=== PATIENT | female | born 1960 | race African-American/Black ===

== ENCOUNTER 2016-12-28 20:49 | Emergency (ER) | payer BC ==
[2016-12-28 21:23] VITALS: TEMP 98; BMI 38.4
--- NOTE | 2016-12-28 21:55 | PDOC ---
History of Present Illness - General History Source: Patient Exam Limitations: No Limitations - History of Present Illness Initial Comments: 12/28/16 22:36 The patient is a 56 year old female with history of hypertension, DM, asthma, who presents to the ED complaining of 1 day of progressively worsening dyspnea and nonproductive cough. Dyspnea is not associated with lying flat. She states she took her albuterol at home but her symptoms persist. No fever or chills. No true chest pain or lightheadedness. No nausea, vomiting, or diarrhea. Patient denies OCP use or cigarette smoking. <Fanny Ordoñez - Last Filed: 12/29/16 00:28> <Yaima Mackenzie - Last Filed: 12/29/16 04:00> - General Chief Complaint: Respiratory Stated Complaint: COLD/CHEST PAIN Time Seen by Provider: 12/28/16 21:55 Past History <Fanny Ordoñez - Last Filed: 12/29/16 00:28> - Past Medical History Anemia: No Asthma: Yes Cancer: Yes (hysterectomy in [place]) Cardiac Disorders: Yes CVA: No COPD: Yes CHF: No Dementia: No Diabetes: No GI Disorders: Yes (GERD) Disorders: No HTN: Yes Hypercholesterolemia: Yes Liver Disease: No Seizures: No Thyroid Disease: No - Surgical History Abdominal Surgery: No Appendectomy: No Cardiac Surgery: No Cholecystectomy: No Gastric Stapling: No GI Surgery: No Lung Surgery: No Neurologic Surgery: No Orthopedic Surgery: No - Suicide/Smoking/Psychosocial Hx Smoking Status: No Smoking History: Never smoked Have you smoked in the past 12 months: No Number of Cigarettes Smoked Daily: 0 Information on smoking cessation initiated: No Hx Alcohol Use: No Drug/Substance Use Hx: No Substance Use Type: None Hx Substance Use Treatment: No <Yaima Mackenzie - Last Filed: 12/29/16 04:00> - Past Medical History Allergies/Adverse Reactions: Allergies Allergy/AdvReac Type Severity Reaction Status Date / Time Iodinated Contrast- Oral and Allergy Verified 12/28/16 21:14 IV Dye [IV Dye, Iodine Containing Contrast ] Home Medications: Ambulatory Orders Aspirin [ASA -] 81 mg PO DAILY 04/26/15 Metformin HCl 1,000 mg PO DAILY 04/26/15 Atorvastatin Ca [Lipitor -] 40 mg PO HS #30 tablet 04/27/15 Metoprolol Tartrate 12.5 mg PO DAILY 12/28/16 Albuterol Sulfate Inhaler - [Ventolin Hfa Inhaler -] 1 - 2 inh PO Q4H #1 inhaler 12/29/16 Azithromycin [Zithromax Tri-Kian (3 DAYS) -] 500 mg PO DAILY #3 tablet 12/29/16 Review of Systems - Review of Systems Able to Perform ROS?: Yes Comments:: 12/28/16 22:37 GENERAL/CONSTITUTIONAL: No fever or chills. No weakness. HEAD, EYES, EARS, NOSE AND THROAT: No change in vision. No ear pain or discharge. No sore throat. CARDIOVASCULAR: No chest pain or lightheadedness. RESPIRATORY: Present: dyspnea, nonproductive cough. No: hemoptysis. GASTROINTESTINAL: No nausea, vomiting, diarrhea or constipation. GENITOURINARY: No dysuria, frequency, or change in urination. MUSCULOSKELETAL: No joint or muscle swelling or pain. No neck or back pain. SKIN: No rash NEUROLOGIC: No headache, vertigo, loss of consciousness, or change in strength/ sensation. ENDOCRINE: No increased thirst. No abnormal weight change. HEMATOLOGIC/LYMPHATIC: No anemia, easy bleeding, or history of blood clots. ALLERGIC/IMMUNOLOGIC: No hives or skin allergy. <Fanny Ordoñez - Last Filed: 12/29/16 00:28> *Physical Exam - Vital Signs Last Vital Signs Temp Pulse Resp BP Pulse Ox 98.0 F 101 H 18 158/82 98 12/28/16 21:15 12/28/16 21:15 12/28/16 21:15 12/28/16 21:15 12/28/16 21:15 - Physical Exam Comments: 12/28/16 22:39 GENERAL: Awake, alert, and fully oriented, in no acute distress HEAD: No signs of trauma EYES: PERRLA, EOMI, sclera anicteric, conjunctiva clear ENT: Auricles normal inspection, hearing grossly normal, nares patent, oropharynx clear without exudates. Moist mucosa NECK: Normal ROM, supple, no lymphadenopathy, JVD, or masses LUNGS: +Coarse breath sounds bilaterally. No crackles. HEART: Regular rate and rhythm, normal S1 and S2, no murmurs, rubs or gallops ABDOMEN: Soft, nontender, normoactive bowel sounds. No guarding, no rebound. No masses EXTREMITIES: Normal range of motion, no edema. No clubbing or cyanosis. No cords, erythema, or tenderness NEUROLOGICAL: Cranial nerves II through XII grossly intact. Normal speech, normal gait SKIN: Warm, Dry, normal turgor, no rashes or lesions noted. <Fanny Ordoñez - Last Filed: 12/29/16 00:28> - Vital Signs Last Vital Signs Temp Pulse Resp BP Pulse Ox 98.0 F 101 H 18 158/82 98 12/28/16 21:15 12/28/16 21:15 12/28/16 21:15 12/28/16 21:15 12/28/16 21:15 <Yaima Mackenzie - Last Filed: 12/29/16 04:00> Heart Score/ECG Review #1 12/29/16 00:29 EKG obtained 23:48. Normal sinus rhythm at 73 bpm. Spetal infarct, age undetermined. Abnormal ECG. <Fanny Ordoñez - Last Filed: 12/29/16 00:28> Medical Decision Making - Medical Decision Making 12/29/16 03:50 Pt comes with asthma exacerbation and chest pain. She states that she uses ventolin; currently using and ventolin pump. Pt has no fevers, but has a dry cough and SOB. She is not a smoker. She is diabetic. Pt will be treated with prednisone and abx (zithromax) for atypical pneumonia. CXR done - relatively clear lung taylor, however I choose to treat with abx as she has DM and SOB and likely has atypical pneumo, given her dry cough and symptoms. <Yaima Mackenzie - Last Filed: 12/29/16 04:00> *DC/Admit/Observation/Transfer - Attestations Scribe Attestion: 12/28/16 22:40 Documentation prepared by Fanny Ordoñez, acting as medical service representative for Yaima Mackenzie MD. <Fanny Ordoñez - Last Filed: 12/29/16 00:28> - Discharge Dispostion Admit: No <Yaima Mackenzie - Last Filed: 12/29/16 04:00> Diagnosis at time of Disposition: Asthma, Atypical pneumonia - Discharge Dispostion Disposition: HOME Condition at time of disposition: Stable - Prescriptions Prescriptions: Albuterol Sulfate Inhaler - [Ventolin Hfa Inhaler -] 1 - 2 inh PO Q4H #1 inhaler Azithromycin [Zithromax Tri-Kian (3 DAYS) -] 500 mg PO DAILY #3 tablet - Referrals Referrals: Miguel Vidal PA [Primary Care Provider] - - Patient Instructions Printed Discharge Instructions: DI for Pneumonia -- Adult, DI for Asthma -- Adult
[2016-12-28] MEDS ORDERED: AZITHROMYCIN 250 MG TABLET ONE (22:09)
[2016-12-28] MEDS ORDERED: ALBUTEROL SO4 2.5/IPRATROPIUM 0.5 INH SOL 3 ML VIAL.NEB. NEB ONE ×2 (22:10→22:23)
[2016-12-28] MEDS ORDERED: AZITHROMYCIN 250 MG TABLET PO ONE (22:23)
[2016-12-28] MEDS ORDERED: predniSONE 20 MG TABLET (UD) PO ONE (22:23)
[2016-12-28] MEDS ORDERED: predniSONE 20 MG TABLET (UD) ONE (22:42)
[2016-12-29 03:54] VITALS: BP 157/79; PULSE 90
--- NOTE | 2016-12-30 07:11 | EKG ---
Test Reason : Blood Pressure : / mmHG Vent. Rate : 102 BPM Atrial Rate : 102 BPM P-R Int : 178 ms QRS Dur : 082 ms QT Int : 322 ms P-R-T Axes : 049 005 024 degrees QTc Int : 419 ms SINUS TACHYCARDIA NONSPECIFIC T WAVE ABNORMALITY ABNORMAL ECG WHEN COMPARED WITH ECG OF 26-APR-2015 11:41, NO SIGNIFICANT CHANGE WAS FOUND Confirmed by MAYELA BEATTY MD ([id number]) on 12/30/2016 7:11:16 AM Referred By: Confirmed By:MAYELA BEATTY MD
== END 2016-12-29 03:53 | disposition home or self-care (01) ==
LOC: JER 20:49
PROC: 3E0F7GC Introduction of Other Therapeutic Substance into Respiratory Tract, Via Natural or Artificial Opening (ICD-10-PCS; principal; 2016-12-28)
DX: J45.909 Unspecified asthma, uncomplicated (principal); J18.9 Pneumonia, unspecified organism; J44.9 Chronic obstructive pulmonary disease, unspecified; I10 Essential (primary) hypertension; E11.9 Type 2 diabetes mellitus without complications; K21.9 Gastro-esophageal reflux disease without esophagitis; Z79.84 Long term (current) use of oral hypoglycemic drugs
CPT/HCPCS: 71020-TC; 93005; 93010; 99282-25

== ENCOUNTER 2017-08-01 10:03 | Emergency (ER) | payer BC ==
[2017-08-01 10:09] VITALS: BMI 36.6
[2017-08-01] MEDS ORDERED: ONDANSETRON 4 MG/2 ML VIAL IVPUSH ONE (10:39)
[2017-08-01] MEDS ORDERED: FAMOTIDINE IV 20 MG/12 ML VIAL IVPUSH ONE (10:39)
[2017-08-01] MEDS ORDERED: SODIUM CHLORIDE 0.9% 500 ML INFUS.BAG IV ONE (10:39)
[2017-08-01] MEDS ORDERED: FAMOTIDINE 20 MG/50 ML IVPB 20 MG/50 ML MG IVPB ONE (10:53)
[2017-08-01] MEDS ORDERED: ONDANSETRON 4 MG/2 ML VIAL ONE (10:53)
[2017-08-01 11:08] LABS: BASO % 0.7 % (0-2.0); EOS % 2.3 % (0-4.5); HEMATOCRIT 37.8 % (32.4-45.2); LYMPH % 23.9 % (8-40); MCH 24.8 pg (25.7-33.7); MCHC 31.7 g/dl (32.0-36.0); MEAN CELL VOLUME 78.3 fl (80-96); MEAN PLT VOLUME 8.3 fl (7.5-11.1); MONO % 9.1 % (3.8-10.2); PLATELET COUNT 281 K/MM3 (134-434); RBC 4.83 M/mm3 (3.60-5.2); WHITE BLOOD COUNT 4.8 K/mm3 (4.0-10.0)
[2017-08-01] MEDS ORDERED: MECLIZINE HCL 25 MG TABLET (FP) PO ONE (11:30)
--- NOTE | 2017-08-01 11:30 | PDOC ---
History of Present Illness - General History Source: Patient Exam Limitations: No Limitations - History of Present Illness Initial Comments: 08/01/17 11:30 The patient is a 57 year old female, with a significant past medical history of diabetes, who presents to the emergency department complaining of dizziness, blurry vision, nausea and vomiting. She denies any sick contacts or recent travel. She describes her vomit as nonbloody and nonbilious. She describes her dizziness as if the room was spinning. She notes that she does have a history of vertigo in the past, roughly 5 years ago. At present time, the patient notes that the dizziness has resolved but the nausea is still apparent. The patient denies chest pain, shortness of breath, headache, fever, chills, diarrhea and constipation. Denies dysuria, frequency, urgency and hematuria. Allergies: Oral and IV dye Past surgical history: Social History: No alcohol, tobacco or drug use reported <Ben Brown - Last Filed: 08/01/17 11:30> - General History Source: Patient Exam Limitations: No Limitations - History of Present Illness Initial Comments: 08/01/17 11:27 <Raquel Roque - Last Filed: 08/01/17 15:56> - General Chief Complaint: Nausea/Vomiting Stated Complaint: VOMITING Time Seen by Provider: 08/01/17 11:27 Past History <Ben Brown - Last Filed: 08/01/17 11:30> - Past Medical History Anemia: No Asthma: Yes Cancer: Yes (hysterectomy in [place]) Cardiac Disorders: Yes CVA: No COPD: Yes CHF: No Dementia: No Diabetes: No GI Disorders: Yes (GERD) Disorders: No HTN: Yes Hypercholesterolemia: Yes Liver Disease: No Seizures: No Thyroid Disease: No - Surgical History Abdominal Surgery: No Appendectomy: No Cardiac Surgery: No Cholecystectomy: No Gastric Stapling: No GI Surgery: No Lung Surgery: No Neurologic Surgery: No Orthopedic Surgery: No - Suicide/Smoking/Psychosocial Hx Smoking Status: No Smoking History: Never smoked Have you smoked in the past 12 months: No Number of Cigarettes Smoked Daily: 0 Hx Alcohol Use: No Drug/Substance Use Hx: No Substance Use Type: None Hx Substance Use Treatment: No <Raquel Roque - Last Filed: 08/01/17 15:56> - Past Medical History Allergies/Adverse Reactions: Allergies Allergy/AdvReac Type Severity Reaction Status Date / Time Iodinated Contrast- Oral and Allergy Verified 08/01/17 10:09 IV Dye [IV Dye, Iodine Containing Contrast ] Home Medications: Ambulatory Orders Aspirin [ASA -] 81 mg PO DAILY 04/26/15 Metformin HCl 1,000 mg PO DAILY 04/26/15 Atorvastatin Ca [Lipitor -] 40 mg PO HS #30 tablet 04/27/15 Metoprolol Tartrate 12.5 mg PO DAILY 12/28/16 Albuterol Sulfate Inhaler - [Ventolin Hfa Inhaler -] 1 - 2 inh PO Q4H #1 inhaler 12/29/16 Azithromycin [Zithromax Tri-Kian (3 DAYS) -] 500 mg PO DAILY #3 tablet 12/29/16 Meclizine HCl 25 mg PO QID PRN #30 tablet 08/01/17 Metoclopramide HCl [Reglan -] 10 mg PO QID PRN #28 tablet MDD 3 08/01/17 Review of Systems - Review of Systems Able to Perform ROS?: Yes Comments:: 08/01/17 11:30 GENERAL/CONSTITUTIONAL: No fever or chills. No weakness. HEAD, EYES, EARS, NOSE AND THROAT: No change in vision. No ear pain or discharge. No sore throat. CARDIOVASCULAR: No chest pain or shortness of breath. RESPIRATORY: No cough, wheezing, or hemoptysis. GASTROINTESTINAL: (+) Nausea and vomiting. No diarrhea or constipation. GENITOURINARY: No dysuria, frequency, or change in urination. MUSCULOSKELETAL: No joint or muscle swelling or pain. No neck or back pain. SKIN: No rash NEUROLOGIC: No headache, vertigo, loss of consciousness, or change in strength/ sensation. ENDOCRINE: No increased thirst. No abnormal weight change. HEMATOLOGIC/LYMPHATIC: No anemia, easy bleeding, or history of blood clots. ALLERGIC/IMMUNOLOGIC: No hives or skin allergy. <Ben Brown - Last Filed: 08/01/17 11:30> *Physical Exam - Vital Signs Last Vital Signs Temp Pulse Resp BP Pulse Ox 97.8 F 78 18 144/79 99 08/01/17 10:06 08/01/17 10:06 08/01/17 10:06 08/01/17 10:06 08/01/17 10:06 - Physical Exam Comments: 08/01/17 11:30 GENERAL: Awake, alert, and fully oriented, in no acute distress HEAD: No signs of trauma EYES: PERRLA, EOMI, sclera anicteric, conjunctiva clear ENT: Auricles normal inspection, nares patent. Moist mucosa NECK: Normal ROM, supple, no JVD, or masses LUNGS: Breath sounds equal, clear to auscultation bilaterally. No wheezes, and no crackles HEART: Regular rate and rhythm, normal S1 and S2, no murmurs, rubs or gallops ABDOMEN: Soft, nontender, normoactive bowel sounds. No guarding, no rebound. No masses EXTREMITIES: Normal range of motion, no edema. No clubbing or cyanosis. No cords, erythema, or tenderness SKIN: Warm, Dry, normal turgor, no rashes or lesions noted. NEUROLOGY: Finger to nose normal, normal alternative hand movements. 5/5 strength upper and lower extremities, gait is normal, positive romberg, positive yao hallpike left. <Ben Brown - Last Filed: 08/01/17 11:30> - Vital Signs Last Vital Signs Temp Pulse Resp BP Pulse Ox 97.8 F 78 18 144/79 99 08/01/17 10:06 08/01/17 10:06 08/01/17 10:06 08/01/17 10:06 08/01/17 10:06 <Raquel Roque - Last Filed: 08/01/17 15:56> ED Treatment Course - LABORATORY CBC & Chemistry Diagram: 08/01/17 11:00 08/01/17 11:00 - ADDITIONAL ORDERS Additional order review: 08/01/17 11:00 RBC 4.83 MCV 78.3 L MCHC 31.7 L RDW 17.0 H MPV 8.3 Neutrophils % 64.0 D Lymphocytes % 23.9 D Monocytes % 9.1 Eosinophils % 2.3 Basophils % 0.7 - Medications Given in the ED: ED Medications Discontinued Medications Generic Name Dose Route Start Last Admin Trade Name Freq PRN Reason Stop Dose Admin Famotidine 20 mg in 12 mls @ 144 mls/hr 08/01/17 10:39 08/01/17 11:06 Pepcid 20 Mg/12 Ml Push IVPUSH 08/01/17 10:43 144 mls/hr ONCE ONE Administration Ondansetron HCl 4 mg 08/01/17 10:39 08/01/17 11:06 Zofran Injection IVPUSH 08/01/17 10:40 4 mg ONCE ONE Administration Sodium Chloride 1,000 ml 08/01/17 10:39 08/01/17 11:06 Normal Saline - IV 08/01/17 10:40 1,000 ml ONCE ONE Administration <Ben Brown - Last Filed: 08/01/17 11:30> - LABORATORY CBC & Chemistry Diagram: 08/01/17 11:00 08/01/17 11:00 - ADDITIONAL ORDERS Additional order review: 08/01/17 11:00 RBC 4.83 MCV 78.3 L MCHC 31.7 L RDW 17.0 H MPV 8.3 Neutrophils % 64.0 D Lymphocytes % 23.9 D Monocytes % 9.1 Eosinophils % 2.3 Basophils % 0.7 - Medications Given in the ED: ED Medications Discontinued Medications Generic Name Dose Route Start Last Admin Trade Name Freq PRN Reason Stop Dose Admin Famotidine 20 mg in 12 mls @ 144 mls/hr 08/01/17 10:39 08/01/17 11:06 Pepcid 20 Mg/12 Ml Push IVPUSH 08/01/17 10:43 144 mls/hr ONCE ONE Administration Ondansetron HCl 4 mg 08/01/17 10:39 08/01/17 11:06 Zofran Injection IVPUSH 08/01/17 10:40 4 mg ONCE ONE Administration Sodium Chloride 1,000 ml 08/01/17 10:39 08/01/17 11:06 Normal Saline - IV 08/01/17 10:40 1,000 ml ONCE ONE Administration <Raquel Roque - Last Filed: 08/01/17 15:56> Medical Decision Making - Medical Decision Making 08/01/17 11:28 57 yo F with h/o diet controlled diabetes, htn here with c/o dizziness, n/v. started last night. threw up several times. last emesis early am. no f/c no gait disturbance. h/o vertigo in the past. on exam normal cerbellar exam finger to nose and gait, alt hand movement. but pos yao hallpike, pos romberg to left. ct head, labs meclizine, zofran ivf, and reassess. 08/01/17 11:50 08/01/17 15:55 pt feels improved. ambulatingwithout difficulty. TM bilateral with serous effusion. recommend over the counter decongestant and meclizine., reglan as needed for nausea. given referral for ENT and Dr. Oquendo, and <Raquel Roque - Last Filed: 08/01/17 15:56> *DC/Admit/Observation/Transfer - Attestations Scribe Attestion: 08/01/17 11:32 Documentation prepared by Ben Brown, acting as medical information specialist for Raquel Roque MD <Ben Brown - Last Filed: 08/01/17 11:30> - Discharge Dispostion Decision to Admit order: No <Raquel Roque - Last Filed: 08/01/17 15:56> Diagnosis at time of Disposition: Positional vertigo - Discharge Dispostion Disposition: HOME Condition at time of disposition: Improved - Prescriptions Prescriptions: Meclizine HCl 25 mg PO QID PRN #30 tablet PRN Reason: Vertigo Metoclopramide HCl [Reglan -] 10 mg PO QID PRN #28 tablet MDD 3 PRN Reason: Nausea - Referrals Referrals: Kiko Oquendo DO [Staff Physician] - Albert Spear MD [Staff Physician] - - Patient Instructions Printed Discharge Instructions: Benign Paroxysmal Positional Vertigo Additional Instructions: you will feel dizzy for 3 - 4 days. you should take meclizine 25 mg every 8 hrs as needed for dizziness or vertigo. you can take reglan 10 mg every 8 hrs as needed for nausea. follow up with nuerologist dr. oquendo, call to schedule. return for intractable vomiting, unsteady balance or any concerns. your head ct scan is normal and your blood work is normal. see attached.
[2017-08-01 12:05] LABS: ALBUMIN 3.6 g/dl (3.4-5.0); ALK PHOS 117 U/L (45-117); ANION GAP 5 (8-16); BILIRUBIN,TOTAL 0.4 mg/dL (0.2-1.0); BLOOD UREA NITROGEN 12 mg/dL (7-18); CALCIUM 8.9 mg/dL (8.5-10.1); CHLORIDE 105 mmol/L (98-107); CO2 30 mmol/L (21-32); CREATININE 0.8 mg/dL (0.55-1.02); GLUCOSE,RANDOM 182 mg/dL (74-106); LIPASE 94 U/L (73-393); POTASSIUM 4.2 mmol/L (3.5-5.1); SGOT/AST 14 U/L (15-37); SGPT/ALT 25 U/L (12-78); SODIUM 140 mmol/L (136-145); TOT PROT 7.1 g/dl (6.4-8.2)
[2017-08-01] MEDS ORDERED: MECLIZINE HCL 25 MG TABLET (FP) ONE (12:20)
[2017-08-01] MEDS ORDERED: METOCLOPRAMIDE HCL INJECTION 10 MG/2 ML VIAL ONE (14:41)
[2017-08-01] MEDS ORDERED: METOCLOPRAMIDE HCL INJECTION 10 MG/2 ML VIAL IVPUSH ONE (14:48)
[2017-08-01] MEDS ORDERED: diazePAM 5 MG TABLET PO ONE (14:53)
[2017-08-01] MEDS ORDERED: diazePAM 5 MG TABLET ONE (14:59)
[2017-08-01 16:30] VITALS: BP 135/78; PULSE 72; TEMP 98.2
== END 2017-08-01 17:27 | disposition home or self-care (01) ==
LOC: JER 10:03
PROC: 3E033GC Introduction of Other Therapeutic Substance into Peripheral Vein, Percutaneous Approach (ICD-10-PCS; principal; 2017-08-01)
PROC: 3E033GC Introduction of Other Therapeutic Substance into Peripheral Vein, Percutaneous Approach (ICD-10-PCS; 2017-08-01)
PROC: 3E033GC Introduction of Other Therapeutic Substance into Peripheral Vein, Percutaneous Approach (ICD-10-PCS; 2017-08-01)
DX: H81.10 Benign paroxysmal vertigo, unspecified ear (principal); I10 Essential (primary) hypertension; E11.9 Type 2 diabetes mellitus without complications; E78.00 Pure hypercholesterolemia, unspecified; K21.9 Gastro-esophageal reflux disease without esophagitis
CPT/HCPCS: 36415; 70450-TC; 80053; 83690; 85025; 99282-25

== ENCOUNTER 2017-08-29 09:41 | Emergency (ER) | payer OTHER, BC ==
[2017-08-29 09:49] VITALS: TEMP 98.2; BMI 37.1
--- NOTE | 2017-08-29 10:39 | PDOC ---
History of Present Illness - General Chief Complaint: Nausea Stated Complaint: CHEMICAL EXPOSURE Time Seen by Provider: 08/29/17 09:52 History Source: Patient Exam Limitations: No Limitations - History of Present Illness Initial Comments: This is a 57 YOF with h/o NIDDM (on metformin and Glipizide), vertigo, and stated heart condition (notes she was admitted to [facility] for a week for evaluation of chest pain but denies being told she had a heart attack) who p/w nausea, NBNB vomiting x3 episodes, room-spinning dizziness, left-sided headache , and neck muscle soreness, left eye pain/burning, left ear ringing , and intermittent right axilla pains since yesterday. She believes she was exposed to a white liquid chemical at work (splashed in face) and states that there are other people at her workplace who were exposed as well. She reportedly spoke with her boss and notes that they did not tell her what kind of chemical this may have been, and told her to flush her eyes with water. The patient went to Urgent Care yesterday and was given Tobramycin and Prednisolone eyedrops, and instructed to go to an ophthalmology office. She subsequently went to be evaluated by ophthalmology yesterday and was told her eyes looked normal, but she was started on Ofloxacin/Dexamethasone drops as well as the other drops. She denies any fever, chills, diarrhea, constipation, SOB, abdominal pain, new swelling, or other symptoms lately. Past History - Past Medical History Allergies/Adverse Reactions: Allergies Allergy/AdvReac Type Severity Reaction Status Date / Time Iodinated Contrast- Oral and Allergy Verified 08/29/17 09:49 IV Dye [IV Dye, Iodine Containing Contrast ] Home Medications: Ambulatory Orders metFORMIN HCL [Metformin HCl] 1,000 mg PO BID 04/26/15 Metoprolol Tartrate 12.5 mg PO BID 12/28/16 Anemia: No Asthma: Yes Cancer: Yes (hysterectomy in [place]) Cardiac Disorders: Yes CVA: No COPD: Yes CHF: No Dementia: No Diabetes: No GI Disorders: Yes (GERD) Disorders: No HTN: Yes Hypercholesterolemia: Yes Liver Disease: No Seizures: No Thyroid Disease: No - Surgical History Abdominal Surgery: No Appendectomy: No Cardiac Surgery: No Cholecystectomy: No Gastric Stapling: No GI Surgery: No Lung Surgery: No Neurologic Surgery: No Orthopedic Surgery: No - Suicide/Smoking/Psychosocial Hx Smoking Status: No Smoking History: Never smoked Have you smoked in the past 12 months: No Number of Cigarettes Smoked Daily: 0 Hx Alcohol Use: No Drug/Substance Use Hx: No Substance Use Type: None Hx Substance Use Treatment: No Review of Systems - Review of Systems Able to Perform ROS?: Yes Constitutional: No: Chills, Fever, Unexplained wgt Loss HEENTM: Yes: Eye Pain, Tearing, Tinnitus. No: Nose Congestion, Throat Pain Respiratory: No: Cough, Shortness of Breath Cardiac (ROS): Yes: Chest Pain. No: Palpitations ABD/GI: Yes: Nausea, Vomiting. No: Constipated, Diarrhea : No: Burning, Dysuria Musculoskeletal: No: Back Pain, Neck Pain Integumentary: No: Bruising, Rash Neurological: Yes: Headache, Dizziness. No: Numbness, Tingling, Weakness Endocrine: No: Unexplained Weight Gain, Unexplained Weight Loss *Physical Exam - Vital Signs Last Vital Signs Temp Pulse Resp BP Pulse Ox 98.2 F 89 18 134/70 99 08/29/17 09:46 08/29/17 09:46 08/29/17 09:46 08/29/17 09:46 08/29/17 09:46 - Physical Exam General Appearance: Yes: Nourished, Appropriately Dressed, Other (nontoxic and well appearing but anxious appearing adult female who is a/ox4 ). No: Apparent Distress HEENT: positive: EOMI, Normal Voice, Hearing Grossly Normal. negative: Scleral Icterus (R), Scleral Icterus (L), Nasal Congestion Neck: positive: Trachea midline, Supple. negative: Tender, Rigid Respiratory/Chest: positive: Lungs Clear, Normal Breath Sounds. negative: Respiratory Distress, Crackles, Rhonchi, Stridor, Wheezing Cardiovascular: positive: Regular Rhythm, Regular Rate. negative: Murmur Gastrointestinal/Abdominal: positive: Normal Bowel Sounds, Soft. negative: Tender, Organomegaly, Pulsatile Mass, Guarding Musculoskeletal: positive: Normal Inspection. negative: Decreased Range of Motion, Vertebral Tenderness Extremity: positive: Normal Capillary Refill, Normal Inspection, Normal Range of Motion. negative: Tender, Cyanosis Integumentary: positive: Normal Color, Dry, Warm. 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 negative: EOM Palsy, Facial Droop, Numbness, Sensory Deficit, Confused, Disoriented Heart Score/ECG Review - History History: Slightly suspicious - Electrocardiogram EKG: Normal - Age Age: 45-65 - Risk Factors Risk Factors Heart Score: Yes Hx Diabetes Based on the list above the patient has:: 1-2 risk factors - Troponin Troponin: </= normal limit - Score Heart Score - Total: 2 #1 Sinus rhythm, rate 80, normal axis and intervals, T wave flattening in III and aVL, otherwise normal EKG. ED Treatment Course - LABORATORY CBC & Chemistry Diagram: 08/29/17 10:45 08/29/17 10:45 Medical Decision Making - Medical Decision Making Adult Pt p/w room-spinning dizziness, nausea, vomiting, tinnitus, headache. Initial Vital Signs Temp Pulse Resp BP Pulse Ox 98.2 F 89 18 134/70 99 08/29/17 09:46 08/29/17 09:46 08/29/17 09:46 08/29/17 09:46 08/29/17 09:46 Exam: Anxious, normal eye exam, TMs clear, normal neuro exam, gait normal, horizontal nystagmus on extreme gaze which extinguishes in 5 seconds DDX IBNLT: peripheral cause (BPPV, otitis media, vestibular neuritis, herpes zoster oticus AKA [place] Sam syndrome, Meniere disease, labyrinthine concussion , perilymphatic fistula, semicircular canal dehiscence syndrome, Stephanie syndrome , recurrent vestibulopathy, acoustic neuroma, aminoglycoside toxicity), central cause (brainstem ischemia or cerebellar infarction or hemorrhage e.g. thromboembolism/thrombosis/dissection, vestibular migraine, multiple sclerosis, Chiari malformation, episodic ataxia type 2), or non-vertiginous cause of dizziness (i.e. lightheadedness c/f pre-syncope). W/U ordered: CBCD CMP Mg Phos Cardiac panel EKG CXR TX ordered: IV, IVF, meclizine Unlikely central cause of vertigo as Pt has no focal neuro deficits, nystagmus is horizontal and extinguishing. EKG: Sinus rhythm, rate 80, normal axis and intervals, T wave flattening in III and aVL, otherwise normal EKG. CXR: Laboratory Tests 08/29/17 08/29/17 08/29/17 10:45 10:45 10:45 WBC 5.2 RBC 4.89 Hgb 12.3 Hct 38.6 MCV 78.9 L MCH 25.2 L MCHC 32.0 RDW 17.4 H Plt Count 317 MPV 8.6 Absolute Neuts (auto) 3.4 Neutrophils % 64.6 Lymphocytes % 25.0 Monocytes % 5.2 Eosinophils % 4.6 H D Basophils % 0.6 Nucleated RBC % 0 Sodium 139 Potassium 4.7 Chloride 104 Carbon Dioxide 28 Anion Gap 7 L BUN 11 Creatinine 0.9 Creat Clearance w eGFR > 60 Random Glucose 212 H Calcium 9.2 Phosphorus 3.5 Magnesium 1.6 L Total Bilirubin 0.2 D AST 27 ALT 34 Alkaline Phosphatase 133 H Creatine Kinase Troponin I Total Protein 7.4 Albumin 3.7 Urine Color Yellow Urine Appearance Clear Urine pH 5.0 Ur Specific Bryant 1.020 Urine Protein Negative Urine Glucose (UA) Negative Urine Ketones Negative Urine Blood Negative Urine Nitrite Negative Urine Bilirubin Negative Urine Urobilinogen Negative Ur Leukocyte Esterase Negative 08/29/17 10:45 WBC RBC Hgb Hct MCV MCH MCHC RDW Plt Count MPV Absolute Neuts (auto) Neutrophils % Lymphocytes % Monocytes % Eosinophils % Basophils % Nucleated RBC % Sodium Potassium Chloride Carbon Dioxide Anion Gap BUN Creatinine Creat Clearance w eGFR Random Glucose Calcium Phosphorus Magnesium Total Bilirubin AST ALT Alkaline Phosphatase Creatine Kinase Cancelled Troponin I Cancelled Total Protein Albumin Urine Color Urine Appearance Urine pH Ur Specific Bryant Urine Protein Urine Glucose (UA) Urine Ketones Urine Blood Urine Nitrite Urine Bilirubin Urine Urobilinogen Ur Leukocyte Esterase Repeat VS: Reassessment: ADMIT The Pt is unsafe for discharge at this time. They require further hospital observation, workup, and treatment. Microblog sent to [facility] for admission. Spoke with [facility], in agreement Pt to be admitted to Decision to Admit order placed to [facility] covering attending DISCHARGE The Pt has gotten significant relief of symptoms with ED medications. Workup is not concerning for emergency-level pathology at this time. The Pt is appropriate for discharge with close outpatient follow up. They are comfortable with this plan and will follow up with their PCP in 1-3 days. They are given referral information for Neurology in case they need it. Specific return precautions are discussed and they will come back to the ER if necessary. *DC/Admit/Observation/Transfer Diagnosis at time of Disposition: Vertigo Vomiting Qualifiers: Vomiting type: unspecified Vomiting Intractability: non-intractable Nausea presence: with nausea Qualified Code(s): R11.2 - Nausea with vomiting, unspecified Headache Qualifiers: Headache type: unspecified Headache chronicity pattern: unspecified pattern Intractability: not intractable Qualified Code(s): R51 - Headache - Discharge Dispostion Disposition: HOME Condition at time of disposition: Stable Decision to Admit order: No - Referrals - Patient Instructions Printed Discharge Instructions: DI for Vertigo Additional Instructions: You were seen in the ER for dizziness, headache, nausea, and vomiting that we believe is related to your vertigo. We did laboratory work, imaging studies, and an EKG and we did not find any concerning abnormalities. After our assessment, we do not believe there is a medical emergency at this time, and we believe it is safe to go home. Please take meclizine 25 to 50 mg for your vertigo as directed on the bottle. This is an [id number] medication. Please follow up with your regular PCP doctor in 1-3 days. Call their clinic as soon as possible, tell them you were seen in the ER, and tell them you need an appointment. If there are any new or worsening symptoms, especially headache, weakness of one part of your body, numbness, tingling, change in your balance, vision troubles, or other troubles, please come back to the ER at any time (24 hours a day). If the symptoms appear severe or life-threatening, please call 911 to have an ambulance take you to the ER. - Post Discharge Activity
[2017-08-29] MEDS ORDERED: MECLIZINE HCL 25 MG TABLET (FP) PO ONE (10:46)
[2017-08-29] MEDS ORDERED: SODIUM CHLORIDE 0.9% 500 ML INFUS.BAG IV ONE (10:46)
[2017-08-29 11:12] LABS: BASO % 0.6 % (0-2.0); EOS % 4.6 % (0-4.5); HEMATOCRIT 38.6 % (32.4-45.2); HEMOGLOBIN 12.3 GM/dL (10.7-15.3); MCH 25.2 pg (25.7-33.7); MEAN CELL VOLUME 78.9 fl (80-96); MEAN PLT VOLUME 8.6 fl (7.5-11.1); MONO % 5.2 % (3.8-10.2); NEUT % 64.6 % (42.8-82.8); PLATELET COUNT 317 K/MM3 (134-434); RBC 4.89 M/mm3 (3.60-5.2); RDW 17.4 % (11.6-15.6); URINE APPEARANCE CLEAR; URINE BILIRUBIN NEGATIVE (<2.0 mg/dL); URINE COLOR YELLOW; URINE GLUCOSE (UA) NEGATIVE (NEGATIVE); URINE KETONE NEGATIVE (NEGATIVE); URINE LEUK ESTERASE NEGATIVE (NEGATIVE); URINE NITRITE NEGATIVE (NEGATIVE); URINE PROTEIN NEGATIVE (NEGATIVE); URINE UROBILINOGEN NEGATIVE mg/dL (0.2-1.0); WHITE BLOOD COUNT 5.2 K/mm3 (4.0-10.0)
[2017-08-29 11:42] LABS: ALBUMIN 3.7 g/dl (3.4-5.0); ANION GAP 7 (8-16); BLOOD UREA NITROGEN 11 mg/dL (7-18); CALCIUM 9.2 mg/dL (8.5-10.1); CHLORIDE 104 mmol/L (98-107); CO2 28 mmol/L (21-32); CREATININE 0.9 mg/dL (0.55-1.02); GLUCOSE,RANDOM 212 mg/dL (74-106); PHOSPHOROUS 3.5 mg/dL (2.5-4.9); SGPT/ALT 34 U/L (12-78); SODIUM 139 mmol/L (136-145)
[2017-08-29 11:44] LABS: ALK PHOS 133 U/L (45-117); BILIRUBIN,TOTAL 0.2 mg/dL (0.2-1.0); TOT PROT 7.4 g/dl (6.4-8.2)
[2017-08-29 11:49] LABS: MAGNESIUM 1.6 mg/dL (1.8-2.4); POTASSIUM 4.7 mmol/L (3.5-5.1); SGOT/AST 27 U/L (15-37)
--- NOTE | 2017-08-29 12:52 | PDOC ---
Attending Attestation - Resident Resident Name: Marta Grace - ED Attending Attestation I have performed the following: I have examined & evaluated the patient, The case was reviewed & discussed with the resident, I agree w/resident's findings & plan, Exceptions are as noted - HPI HPI: 08/29/17 12:28 "57 F with h/o diabetes (metformin), htn, hld, asthma, presenting with dizziness and N+V. 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 She developed dizziness at that time and went to her doctor, who diagnosed her with vertigo. Pt was given medication, and her symptoms resolved. Pt has since seen a neurologist and ENT who both stated she had nothing wrong with her. 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 Pt then developed the same symptoms of dizziness. Pt states it is a room-spinning dizziness. Pt vomited 3 times since onset. She also noticed swelling around her eyes at the time. She states that she went to an urgent care yesterday and was diagnosed with conjunctivitis and started on eye drops. Today, pt states that eye swelling has resolved, but she had persistent dizziness upon awakening. Pt denies weakness/numbness/tingling in any extremity. Pt reports her symptoms have since subsided. Allergies: Iodinated Contrast (Oral and IV Dye)" - Physicial Exam PE: 08/29/17 12:52 "GENERAL: Awake, alert, and fully oriented, in no acute distress. HEAD: No signs of trauma EYES: PERRLA, EOMI, sclera anicteric, conjunctiva clear ENT: Auricles normal inspection, hearing grossly normal, nares patent, oropharynx clear without exudates. Moist mucosa NECK: Nontender, no stepoffs, Normal ROM, supple, no lymphadenopathy, JVD, or masses LUNGS: Breath sounds equal, clear to auscultation bilaterally. No wheezes, and no crackles HEART: Regular rate and rhythm, normal S1 and S2, no murmurs, rubs or gallops ABDOMEN: Soft, nontender, normoactive bowel sounds. No guarding, no rebound. No masses EXTREMITIES: Normal range of motion, no edema. No clubbing or cyanosis. No cords, erythema, or tenderness NEUROLOGICAL: Cranial nerves II through XII intact. 5/5 strength and sensation in all extremities, Normal speech, normal gait, normal cerebellar function SKIN: Warm, Dry, normal turgor, no rashes or lesions noted. " - Medical Decision Making 08/29/17 12:00 57 F with dizziness and N+V. Likely vertigo. Pt with no neuro deficits on my exam, no nystagmus. Symptoms have subsided per patient. Unclear whether pt's symptoms are 2/2 toxic exposure, but pt with no clinical signs of any toxidrome on exam. No evidence of chemical kaufman on skin. - Labs, trop - IVF - Reassess 08/29/17 12:54 Pt reassessed - continues to feel well Labs wnl Pt is well appearing, with normal vitals. Clinically stable for DC at this time. I discussed the physical exam findings, ancillary test results and final diagnoses with the patient. I answered all of the patient's questions. The patient was satisfied with the care received and felt comfortable with the discharge plan and treatment plan. The patient agrees to follow up with the primary care physician within 24-72 hours.
[2017-08-29 13:19] VITALS: BP 132/83; PULSE 80
--- NOTE | 2017-08-29 17:44 | EKG ---
Test Reason : Blood Pressure : / mmHG Vent. Rate : 086 BPM Atrial Rate : 086 BPM P-R Int : 160 ms QRS Dur : 080 ms QT Int : 364 ms P-R-T Axes : 042 -02 025 degrees QTc Int : 435 ms NORMAL SINUS RHYTHM MINIMAL VOLTAGE CRITERIA FOR LVH, MAY BE NORMAL VARIANT BORDERLINE ECG WHEN COMPARED WITH ECG OF 28-DEC-2016 21:16, NO SIGNIFICANT CHANGE WAS FOUND Confirmed by IRLANDA ROCK, ROMIE ([id number]) on 08/29/2017 5:44:24 PM Referred By: Confirmed By:ROMIE FOURNIER MD
== END 2017-08-29 13:19 | disposition home or self-care (01) ==
LOC: JER 09:41
DX: R42 Dizziness and giddiness (principal); I10 Essential (primary) hypertension; E11.9 Type 2 diabetes mellitus without complications; Z79.84 Long term (current) use of oral hypoglycemic drugs; K21.9 Gastro-esophageal reflux disease without esophagitis
CPT/HCPCS: 36415; 71045-TC-FY; 80053; 81003; 82550; 83735; 84100; 84484; 85025; 87086; 93005; 93010; 99284-25

== ENCOUNTER 2018-01-30 18:44 | Emergency (ER) | payer BC ==
[2018-01-30 19:03] VITALS: BP 120/69; PULSE 90; TEMP 98.5; BMI 37.6
[2018-01-30] MEDS ORDERED: IBUPROFEN 600 MG TABLET (FP) PO ONE ×2 (19:34→19:36)
[2018-01-30] MEDS ORDERED: ALBUTEROL SO4 2.5/IPRATROPIUM 0.5 INH SOL 3 ML VIAL.NEB. NEB ONE ×2 (19:34→19:36)
--- NOTE | 2018-01-30 19:41 | PDOC ---
History of Present Illness - General Chief Complaint: Respiratory Stated Complaint: CHEST PAIN Time Seen by Provider: 01/30/18 19:27 History Source: Patient Exam Limitations: No Limitations - History of Present Illness Initial Comments: 01/30/18 19:38 57-year-old female with history of asthma presents to ED with complaints of dry hacking cough , nasal congestion and rib pain secondary to excessive coughing for the past 4-5 days. Patient denies fever, chills, chest pain, and shortness of breath. 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 Patient states has not used her inhaler or taken any medications for the above. Timing/Duration: reports: other (4-5 days) Severity: reports: mild Possible Cause: Yes: occasional episodes Modifying Factors: improves with: activity, coughing Associated Symptoms: reports: chest pain/soreness (rib soreness), cough, nasal congestion, sore throat Past History - Travel Traveled outside of the country in the last 30 days: No Close contact w/someone who was outside of country & ill: No - Past Medical History Allergies/Adverse Reactions: Allergies Allergy/AdvReac Type Severity Reaction Status Date / Time Iodinated Contrast- Oral and Allergy Verified 01/30/18 19:03 IV Dye [IV Dye, Iodine Containing Contrast ] Home Medications: Ambulatory Orders metFORMIN HCL [Metformin HCl] 1,000 mg PO BID 04/26/15 Metoprolol Tartrate 12.5 mg PO BID 12/28/16 Anemia: No Asthma: Yes Cancer: Yes (hysterectomy in [place]) Cardiac Disorders: Yes CVA: No COPD: Yes CHF: No Dementia: No Diabetes: Yes GI Disorders: Yes (GERD) Disorders: No HTN: Yes Hypercholesterolemia: Yes Liver Disease: No Seizures: No Thyroid Disease: No - Surgical History Abdominal Surgery: No Appendectomy: No Cardiac Surgery: No Cholecystectomy: No Gastric Stapling: No GI Surgery: No Lung Surgery: No Neurologic Surgery: No Orthopedic Surgery: No - Suicide/Smoking/Psychosocial Hx Smoking Status: No Smoking History: Never smoked Have you smoked in the past 12 months: No Number of Cigarettes Smoked Daily: 0 Hx Alcohol Use: No Drug/Substance Use Hx: No Substance Use Type: None Hx Substance Use Treatment: No Patient Lives Alone: No Lives with/in: spouse/SO Review of Systems - Review of Systems Able to Perform ROS?: Yes Constitutional: No: Symptoms Reported HEENTM: Yes: Nose Congestion, Throat Pain Respiratory: Yes: Cough. No: Wheezing Cardiac (ROS): No: Symptoms Reported ABD/GI: No: Symptoms Reported : No: Symptoms Reported Musculoskeletal: Yes: Symptoms Reported, Muscle Pain (ribs) Integumentary: No: Symptoms Reported Neurological: No: Symptoms reported Hematologic/Lymphatic: No: Symptoms Reported *Physical Exam - Vital Signs Last Vital Signs Temp Pulse Resp BP Pulse Ox 98.5 F 90 18 120/69 99 01/30/18 18:52 01/30/18 18:52 01/30/18 18:52 01/30/18 18:52 01/30/18 18:52 - Physical Exam General Appearance: Yes: Nourished, Appropriately Dressed. No: Apparent Distress HEENT: positive: EOMI, MEJIA, TMs Normal, Pharynx Normal, Nasal Congestion ( beige secretions in salaazr nares). negative: Pale Conjunctivae Neck: positive: Supple Respiratory/Chest: positive: Chest Tender (thoracic rib pain), Lungs Clear, Normal Breath Sounds. negative: Respiratory Distress, Accessory Muscle Use, Wheezing Cardiovascular: positive: Regular Rhythm, Regular Rate. negative: Murmur Gastrointestinal/Abdominal: positive: Soft. negative: Tenderness Integumentary: positive: Normal Color, Warm, Moist. negative: Rash Neurologic: positive: Motor Strength 5/5 (ambulatory) ED Treatment Course - RADIOLOGY Radiology Studies Ordered: Category Date Time Status CHEST PA & LAT [RAD] Stat Radiology 01/30/18 19:35 Ordered Medical Decision Making - Medical Decision Making 01/30/18 19:42 CC: cough, nasal congestion, sore throat, rib soreness Exam: reprod post uoper back pain Plan: haley quintanillarin, cxr 01/30/18 20:36 Chest x-ray shows no Acute process. Patient will be given prescription for azithromycin with recommendations to use on an inhaler as needed *DC/Admit/Observation/Transfer Diagnosis at time of Disposition: Bronchitis - Discharge Dispostion Disposition: HOME Condition at time of disposition: Improved - Referrals - Patient Instructions Printed Discharge Instructions: DI for Acute Bronchitis Additional Instructions: Take antibiotics as prescribed. Please carry your inhaler with you as needed. May take Motrin 600 mg every 8 hours for chest discomfort / rib achiness - Post Discharge Activity
== END 2018-01-30 20:40 | disposition home or self-care (01) ==
LOC: JERFT 18:44
PROC: 3E0F7GC Introduction of Other Therapeutic Substance into Respiratory Tract, Via Natural or Artificial Opening (ICD-10-PCS; principal; 2018-01-30)
DX: J40 Bronchitis, not specified as acute or chronic (principal); I10 Essential (primary) hypertension; E11.9 Type 2 diabetes mellitus without complications; Z79.84 Long term (current) use of oral hypoglycemic drugs
CPT/HCPCS: 71046-TC-FY; 99281-25

== ENCOUNTER 2018-05-23 13:57 | Emergency (ER) | payer BC ==
[2018-05-23 14:03] VITALS: BP 120/71; PULSE 87; TEMP 98; BMI 35.6
[2018-05-23] MEDS ORDERED: IBUPROFEN 400 MG TABLET (FP) PO ONE ×2 (14:30→14:33)
--- NOTE | 2018-05-23 14:56 | PDOC ---
History of Present Illness - General Chief Complaint: Pain Stated Complaint: RT KNEE INJURY Time Seen by Provider: 05/23/18 14:26 History Source: Patient Exam Limitations: No Limitations (R knee pain X 1wk) - History of Present Illness Pain Location: reports: lower extremity Past History - Travel Traveled outside of the country in the last 30 days: No Close contact w/someone who was outside of country & ill: No - Past Medical History Allergies/Adverse Reactions: Allergies Allergy/AdvReac Type Severity Reaction Status Date / Time Iodinated Contrast- Oral and Allergy Verified 05/23/18 14:03 IV Dye [IV Dye, Iodine Containing Contrast ] Home Medications: Ambulatory Orders metFORMIN HCL [Metformin HCl] 1,000 mg PO BID 04/26/15 Metoprolol Tartrate 12.5 mg PO BID 12/28/16 Azithromycin [Zithromax Tri-Kian (3 DAYS) -] 500 mg PO DAILY #3 tablet 01/30/18 Ibuprofen 800 mg PO ACDIN 7 Days #21 tablet 05/23/18 Anemia: No Asthma: Yes Cancer: Yes (hysterectomy in [place]) Cardiac Disorders: Yes CVA: No COPD: Yes CHF: No Dementia: No Diabetes: Yes GI Disorders: Yes (GERD) Disorders: No HTN: Yes (stopped taking meds on her own) Hypercholesterolemia: No Liver Disease: No Seizures: No Thyroid Disease: No - Surgical History Abdominal Surgery: No Appendectomy: No Cardiac Surgery: No Cholecystectomy: No Gastric Stapling: No GI Surgery: No Lung Surgery: No Neurologic Surgery: No Orthopedic Surgery: No - Suicide/Smoking/Psychosocial Hx Smoking Status: No Smoking History: Never smoked Have you smoked in the past 12 months: No Number of Cigarettes Smoked Daily: 0 Hx Alcohol Use: No Drug/Substance Use Hx: No Substance Use Type: None Hx Substance Use Treatment: No Review of Systems - Review of Systems Is the patient limited Belarusian proficient: No Constitutional: No: Chills, Fever Musculoskeletal: Yes: Joint Pain. No: Back Pain (R knee pain) *Physical Exam - Vital Signs Last Vital Signs Temp Pulse Resp BP Pulse Ox 98 F 87 18 120/71 99 05/23/18 14:00 05/23/18 14:00 05/23/18 14:00 05/23/18 14:00 05/23/18 14:00 - Physical Exam General Appearance: Yes: Nourished Respiratory/Chest: positive: Lungs Clear, Normal Breath Sounds Cardiovascular: positive: Regular Rhythm, Regular Rate, S1, S2 Extremity: positive: Other (R knee: + tenderness in medial aspect of knee, limited ROM due to pain. 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 Patient denies any LOC or head trauma. She is coming in complaining of medial aspect of the knee is painful. On examination she does have tenderness in the medial joint line range of motion is limited due to pain her gait is stable. Plan is x- ray pain control we'll reassess 05/23/18 16:02 knee x-ray with degenerative changes. No acute fracture knee hakan wrapped ortho as outpt for possible MRI imaging if indicated Motrin for pain 05/23/18 16:09 *DC/Admit/Observation/Transfer Diagnosis at time of Disposition: DJD (degenerative joint disease) of knee Qualifiers: Osteoarthritis type: primary Laterality: right Qualified Code(s): M17.11 - Unilateral primary osteoarthritis, right knee - Discharge Dispostion Disposition: HOME Condition at time of disposition: Stable Decision to Admit order: No - Prescriptions Prescriptions: Ibuprofen 800 mg PO ACDIN 7 Days #21 tablet - Referrals Referrals: Shoaib Ferreira MD [Staff Physician] - - Patient Instructions Printed Discharge Instructions: DI for Knee Pain Additional Instructions: Your xray show arthritis in the knee There is no fracture please follow orthopedics as an outpatient take Motrin or Tylenol for pain I discussed the physical exam findings, ancillary test results and final diagnoses with the patient. I answered all of the patient's questions. The patient was satisfied with the care received and felt comfortable with the discharge plan and treatment plan. The patient will call their primary care physician within 24 hours to arrange follow-up and will return to the Emergency Department with any new, persistant or worsening symptoms. - Post Discharge Activity
== END 2018-05-23 16:10 | disposition home or self-care (01) ==
LOC: JERFT 13:57
DX: M17.11 Unilateral primary osteoarthritis, right knee (principal); I10 Essential (primary) hypertension; E11.9 Type 2 diabetes mellitus without complications; Z79.84 Long term (current) use of oral hypoglycemic drugs; J45.909 Unspecified asthma, uncomplicated; J44.9 Chronic obstructive pulmonary disease, unspecified
CPT/HCPCS: 73562-TC-RT-FY; 99281-25

== ENCOUNTER 2019-01-23 04:11 | Emergency (ER) | payer BC ==
[2019-01-23 04:23] VITALS: BP 126/78; PULSE 85; TEMP 97.7; BMI 36.6
--- NOTE | 2019-01-23 04:39 | PDOC ---
Attending Attestation - Resident Resident Name: Juan Monahan - ED Attending Attestation I have performed the following: I have examined & evaluated the patient, The case was reviewed & discussed with the resident, I agree w/resident's findings & plan - HPI HPI: 01/23/19 06:27 Pt comes with seasonal asthma exacerbation. Intermittent substernal chest pain and shortness of breath for the past month. Dy cough and wheezing. Symptoms woke the pt from sleep tonight. Denies radiation to either arm, back, or abdomen. Pt has a h/o of asthma managed only with Albuterol. Ran out of home albuterol ampules. Has been evaluated at an urgent care several times. Completed six day course of a Z-pack yesterday. Developed diarrhea, dysuria, and urinary urgency since starting the antibiotics. - Physicial Exam PE: 01/23/19 22:29 Decreased breath sounds in bilateral lung taylor. - Medical Decision Making 01/23/19 22:29 58 y/o female presenting with substernal chest pain, nonproductive cough, and shortness of breath. Symptoms are acute on chronic for the past month. Also endorsed urinary symptoms and diarrhea. Afebrile. Vitals unremarkable for hypotension or tachycardia. Physical exam as described above. CXR normal. Repeat auscultatory exam improved in the lower lobes bilaterally after DuoNeb administration. EKG unremarkable for ischemic changes. Troponin not elevated. Will not trend as symptoms have been occurring for >3 hours. Low suspicion for ACS. UA remarkable for glucose and keytones but unremarkable for pyuria, nitrites, or leukocyte esterase. Low suspicion for acute cystitis, rather suspect osmotic diuresis secondary to hyperglycemia. CMP BGL >400. Ordered IVFB. CO2 within normal limits. Low suspicion for DKA or HHS. Ordered insulin push. Pt reports she has enough of her current diabetes medications. Suspect diarrhea is secondary to recent antibiotic usage. Low suspicion for c.diff. No leukocytosis. Stable to go home; Impression: mild asthma exacerbation with nighttime waking and cough.
[2019-01-23] MEDS ORDERED: ASPIRIN 81 MG CHEWABLE TABLETS PO ONE (04:43)
[2019-01-23] MEDS ORDERED: ALBUTEROL SO4 2.5/IPRATROPIUM 0.5 INH SOL 3 ML VIAL.NEB. NEB ONE ×2 (04:48→04:56)
[2019-01-23] MEDS ORDERED: ASPIRIN 81 MG CHEWABLE TABLETS ONE (04:56)
--- NOTE | 2019-01-23 05:04 | PDOC ---
History of Present Illness <Yaima Mackenzie - Last Filed: 01/23/19 06:40> - General History Source: Patient Exam Limitations: No Limitations - History of Present Illness Initial Comments: HPI: 58 y/o female presenting to [facility] ER complaining of intermittent substernal chest pain and shortness of breath for the past month. Endorses dry cough and wheezing. Symptoms woke the pt from sleep tonight. Denies radiation to either arm, back, or abdomen. Pt has a h/o of asthma managed only with Albuterol. Ran out of home albuterol ampules. Has been evaluated at an urgent care several times. Completed six day course of a Z-pack yesterday. Developed diarrhea, dysuria, and urinary urgency since starting the antibiotics. Medical Hx: - HTN - DM, managed w/ Janumet and Metformin - Asthma Review of Systems: In addition to that documented in the HPI above, the additional ROS was obtained : Constitutional- Denies fevers or chills Head- Denies vision changes ENMT- Denies sore throat CV- Endorses chest pain and "sometimes feels palpitations" Resp- Denies productive cough or sneezing GI- Endorses diarrhea. Denies bloody bowel movements or vomiting - Endorses dysuria, increased frequency, and urgency. Denies hematuria. MSK- Denies recent trauma Skin- Denies new rashes Neuro- Denies new numbness or tingling or weakness Endocrine- Denies polyuria Heme- Denies bleeding or bruising Physical Examination: Constitutional- Adult female in no acute distress or obvious discomfort. Obese body habitus. Initially observed walking to exam room unassisted without difficulty. Found semi-fowlers on hospital bed. Answered all questions appropriately and completely. Head- Normocephalic. No obvious external signs of trauma. Eyes- Sclerae white. Nose- No nasal discharge. Throat- Oral cavity and pharynx normal. No inflammation, swelling, exudate, or lesions. Neck- Supple, trachea is midline. No JVD. Cardiovascular / Chest- Regular rate and regular rhythm. No murmur, rubs, clicks , or gallops. Peripheral pulses- radial pulses full. Diffuse tenderness along sternum worse with direct palpation. No overlying skin lesions. Respiratory- Breathing unlabored. Speaking in complete sentences without difficulty. Equal chest rise and fall. Clear to auscultation bilaterally. No stridor, no wheezing, no rhonchi. Gastrointestinal- abdomen is soft and non-distended. No overlying skin lesions or obvious signs of trauma. Neuro- Alert and oriented x4. Moving all four extremities spontaneously. Gait normal. Skin- Warm, dry, and intact. - No R or L CVA tenderness. Psych- Affect- appropriate. Mood- normal. Speech was non-labored, non- pressured. MDM: HEART Score for Major Cardiac Events RESULT SUMMARY: 3 points Low Score (0-3 points) Risk of MACE of 0.9-1.7%. INPUTS: History > 0 = Slightly suspicious EKG > 0 = Normal Age > 1 = 45-64 Risk factors > 2 = ?3 risk factors or history of atherosclerotic disease Initial troponin > 0 = ?normal limit *Reviewed vital signs, nursing notes, and prior visit documentation (if available). 58 y/o female presenting with substernal chest pain, nonproductive cough, and shortness of breath. Symptoms are acute on chronic for the past month. Also endorsed urinary symptoms and diarrhea. Afebrile. Vitals unremarkable for hypotension or tachycardia. Physical exam as described above. CXR unremarkable for acute cardiopulmonary findings per ED wet read. Radiology report pending. Low suspicion for PNA or acute bronchitis. Repeat auscultatory exam improved in the lower lobes bilaterally after DuoNeb administration. Suspect possible mild asthma exacerbation with nighttime waking and cough. EKG unremarkable for ischemic changes. Troponin not elevated. Will not trend as symptoms have been occurring for >3 hours. Low suspicion for ACS. UA remarkable for glucose and keytones but unremarkable for pyuria, nitrites, or leukocyte esterase. Low suspicion for acute cystitis, rather suspect osmotic diuresis secondary to hyperglycemia. CMP BGL >400. Ordered IVFB. CO2 within normal limits. Low suspicion for DKA or HHS. Ordered insulin push. Pt reports she has enough of her current diabetes medications. Suspect diarrhea is secondary to recent antibiotic usage. Low suspicion for c.diff. No leukocytosis. Discussed labs and xrays results with pt. Answered all questions. Provided return precautions. pt expressed verbal understanding and agreement with plan to discharge home with outpatient follow up. Provided copies of todays results. Juan Monahan M.D., PGY2 Emergency Medicine Resident Is this a multiple visit Asthma Patient?: No <Juan Monahan - Last Filed: 01/23/19 06:54> - General Chief Complaint: Shortness of Breath Stated Complaint: S.O.B. Time Seen by Provider: 01/23/19 04:22 Past History <Yaima Mackenzie - Last Filed: 01/23/19 06:40> - Past Medical History Anemia: No Asthma: Yes Cancer: Yes (hysterectomy in [place]) Cardiac Disorders: Yes CVA: No COPD: No (patient denies) CHF: No Dementia: No Diabetes: Yes GI Disorders: Yes (GERD) Disorders: No HTN: Yes (stopped taking meds on her own) Hypercholesterolemia: No Liver Disease: No Seizures: No Thyroid Disease: No - Surgical History Abdominal Surgery: No Appendectomy: No Cardiac Surgery: No Cholecystectomy: No Gastric Stapling: No GI Surgery: No Lung Surgery: No Neurologic Surgery: No Orthopedic Surgery: No - Psycho Social/Smoking Cessation Hx Smoking Status: No Smoking History: Never smoked Have you smoked in the past 12 months: No Number of Cigarettes Smoked Daily: 0 Hx Alcohol Use: No Drug/Substance Use Hx: No Substance Use Type: None Hx Substance Use Treatment: No <Juan Monahan - Last Filed: 01/23/19 06:54> - Past Medical History Allergies/Adverse Reactions: Allergies Allergy/AdvReac Type Severity Reaction Status Date / Time Iodinated Contrast Media Allergy Verified 01/23/19 04:24 [IV Dye, Iodine Containing Contrast ] peanut Allergy Verified 01/23/19 04:24 Home Medications: Ambulatory Orders metFORMIN HCL [Metformin HCl] 1,000 mg PO BID 04/26/15 Albuterol 0.083% Nebulizer Coral [Ventolin 0.083% Nebulizer Soln -] 1 neb NEB Q4H PRN #30 vial 01/23/19 Albuterol Sulfate Inhaler - [Ventolin HFA Inhaler -] 1 - 2 inh PO Q4H PRN #1 inhaler 01/23/19 *Physical Exam - Vital Signs Last Vital Signs Temp Pulse Resp BP Pulse Ox 97.7 F 85 18 126/78 99 01/23/19 04:21 01/23/19 04:21 01/23/19 04:21 01/23/19 04:21 01/23/19 04:41 <Yaima Mackenzie - Last Filed: 01/23/19 06:40> - Vital Signs Last Vital Signs Temp Pulse Resp BP Pulse Ox 97.7 F 85 18 126/78 99 01/23/19 04:21 01/23/19 04:21 01/23/19 04:21 01/23/19 04:21 01/23/19 04:41 <Juan Monahan - Last Filed: 01/23/19 06:54> Heart Score/ECG Review - History History: Slightly suspicious - Electrocardiogram EKG: Normal - Age Age: 45-65 - Risk Factors Risk Factors Heart Score: Yes Hx Hypertension, Yes Hx Diabetes, Yes Hx Obesity Based on the list above the patient has:: >/=3 risk factors or Hx atherosclerotic disease - Troponin Troponin: </= normal limit - Score Heart Score - Total: 3 <Juan Monahan - Last Filed: 01/23/19 06:54> ED Treatment Course - LABORATORY CBC & Chemistry Diagram: 01/23/19 05:00 01/23/19 05:00 - ADDITIONAL ORDERS Additional order review: Laboratory Results 01/23/19 01/23/19 01/23/19 06:37 05:00 05:00 Sodium Potassium Chloride Carbon Dioxide Anion Gap BUN Creatinine Est GFR (CKD-EPI)AfAm Est GFR (CKD-EPI)NonAf POC Glucometer 415 Random Glucose Calcium Total Bilirubin AST ALT Alkaline Phosphatase Troponin I < 0.02 Total Protein Albumin Urine Color Yellow Urine Appearance Clear Urine pH 5.5 Ur Specific Henderson 1.045 H Urine Protein Negative Urine Glucose (UA) 3+ H Urine Ketones Pos Urine Blood Negative Urine Nitrite Negative Urine Bilirubin Negative Urine Urobilinogen 0.2 Ur Leukocyte Esterase Negative 01/23/19 05:00 Sodium 133 L Potassium 4.1 Chloride 99 Carbon Dioxide 28 Anion Gap 6 L BUN 13.8 Creatinine 0.9 Est GFR (CKD-EPI)AfAm 81.69 Est GFR (CKD-EPI)NonAf 70.48 POC Glucometer Random Glucose 497 H* Calcium 8.6 Total Bilirubin 0.4 AST 16 ALT 31 Alkaline Phosphatase 120 H Troponin I Total Protein 6.8 Albumin 3.6 Urine Color Urine Appearance Urine pH Ur Specific Henderson Urine Protein Urine Glucose (UA) Urine Ketones Urine Blood Urine Nitrite Urine Bilirubin Urine Urobilinogen Ur Leukocyte Esterase 01/23/19 01/23/19 06:37 05:00 RBC 4.76 MCV 79.4 L MCHC 32.2 RDW 17.3 H MPV 9.4 Neutrophils % 51.0 D Lymphocytes % 35.9 D Monocytes % 10.7 H D Eosinophils % 1.6 Basophils % 0.8 POC Glucometer 415 - Medications Given in the ED: ED Medications Discontinued Medications Generic Name Dose Route Start Last Admin Trade Name Freq PRN Reason Stop Dose Admin Albuterol/Ipratropium 1 amp 01/23/19 04:48 01/23/19 04:58 Duoneb - NEB 01/23/19 04:49 1 amp ONCE ONE Administration Aspirin 324 mg 01/23/19 04:43 01/23/19 04:58 Asa - PO 01/23/19 04:44 324 mg ONCE ONE Administration Lactated Ringer's 1,000 ml 01/23/19 05:46 01/23/19 05:51 Lactated Ringers Solution IV 01/23/19 05:47 1,000 ml ONCE ONE Administration <Yaima Mackenzie - Last Filed: 01/23/19 06:40> - LABORATORY CBC & Chemistry Diagram: 01/23/19 05:00 01/23/19 05:00 - RADIOLOGY Radiology Studies Ordered: Category Date Time Status CHEST PA & LAT [RAD] Stat Radiology 01/23/19 04:41 Ordered - Medications Given in the ED: ED Medications Discontinued Medications Generic Name Dose Route Start Last Admin Trade Name Freq PRN Reason Stop Dose Admin Albuterol/Ipratropium 1 amp 01/23/19 04:48 01/23/19 04:58 Duoneb - NEB 01/23/19 04:49 1 amp ONCE ONE Administration Aspirin 324 mg 01/23/19 04:43 01/23/19 04:58 Asa - PO 01/23/19 04:44 324 mg ONCE ONE Administration <Juan Monahan - Last Filed: 01/23/19 06:54> Discharge - Discharge Information Problems reviewed: Yes <Yaima Mackenzie - Last Filed: 01/23/19 06:40> - Admission No <Juan Monahan - Last Filed: 01/23/19 06:54> - Discharge Information Clinical Impression/Diagnosis: Shortness of breath, Urinary frequency, Hyperglycemia Asthma Qualifiers: Asthma severity: mild Asthma persistence: intermittent Asthma complication type : unspecified Qualified Code(s): J45.20 - Mild intermittent asthma, uncomplicated Diarrhea Qualifiers: Diarrhea type: unspecified type Qualified Code(s): R19.7 - Diarrhea, unspecified Condition: Improved Disposition: HOME - Additional Discharge Information Prescriptions: Albuterol 0.083% Nebulizer Coral [Ventolin 0.083% Nebulizer Soln -] 1 neb NEB Q4H PRN #30 vial PRN Reason: Wheezing, shortness of breath Albuterol Sulfate Inhaler - [Ventolin HFA Inhaler -] 1 - 2 inh PO Q4H PRN #1 inhaler PRN Reason: Wheezing, Shortness of Breath - Follow up/Referral Referrals: [facility] [place] [facility] [Provider Group] Ammy Allen [Staff Physician] - - Patient Discharge Instructions Patient Printed Discharge Instructions: DI for Asthma -- Adult, DI for Hyperglycemia -- Adult, Probiotics May Decrease Intensity and Duration of Diarrhea Due to Infection Additional Instructions: You were seen today for chest pain, shortness of breath, and a cough. This is likely because of your asthma. I have sent Albuterol refills to your pharmacy. The urinary frequency is likely because you blood sugar has been high. Continue to take your current diabetes medications, but you need to see a primary care doctor to discuss better ways of managing your condition. The diarrhea is likely a side effect of the recent antibiotics. It will likely go away in the next few days. I have sent two prescriptions to your pharmacy. The first is for the albuterol ampules for the home breathing machine. The second is for the albuterol inhaler. Take as directed on the package inserts. Do not exceed the recommended dosages. You need to see a primary care doctor in the next 1-2 days. I have entered a referral for you to see a primary care physician at [facility] [place]. You will need to call to make an appointment in the next 2-4 days. The telephone number is [phone]. The address is- [facility] [place] [place] [address] Alternatively, I have also entered a referral for you to see Dr. Allen. You will need to call to make an appointment. The number is included in this packet. A copy of todays results are attached to this packet. Take it to the appointment so your doctor can review them. Go to the nearest emergency department if your condition worsens or you feel like you need additional emergency evaluation. Print Language: KHMER - Post Discharge Activity Work/Back to School Note: Back to Work
[2019-01-23 05:15] LABS: BASO % 0.8 % (0-2.0); EOS % 1.6 % (0-4.5); HEMATOCRIT 37.8 % (32.4-45.2); HEMOGLOBIN 12.1 GM/dL (10.7-15.3); LYMPH % 35.9 % (8-40); MCH 25.6 pg (25.7-33.7); MCHC 32.2 g/dl (32.0-36.0); MEAN CELL VOLUME 79.4 fl (80-96); MEAN PLT VOLUME 9.4 fl (7.5-11.1); MONO % 10.7 % (3.8-10.2); PLATELET COUNT 228 K/MM3 (134-434); RBC 4.76 M/mm3 (3.60-5.2); RDW 17.3 % (11.6-15.6); WHITE BLOOD COUNT 5.2 K/mm3 (4.0-10.0)
[2019-01-23 05:42] LABS: ALBUMIN 3.6 g/dl (3.4-5.0); BILIRUBIN,TOTAL 0.4 mg/dL (0.2-1); BLOOD UREA NITROGEN 13.8 mg/dL (7-18); CALCIUM 8.6 mg/dL (8.5-10.1); CREATININE 0.9 mg/dL (0.55-1.3); POTASSIUM 4.1 mmol/L (3.5-5.1); TOT PROT 6.8 g/dl (6.4-8.2)
[2019-01-23 05:46] LABS: URINE APPEARANCE CLEAR; URINE COLOR YELLOW
[2019-01-23] MEDS ORDERED: LACTATED RINGERS SOLUTION 1000 ML INFUS.BAG IV ONE (05:46)
[2019-01-23 05:47] LABS: PH,URINE 5.5 (5.0-8.0); URINE BILIRUBIN NEGATIVE (NEGATIVE); URINE GLUCOSE (UA) 3+ (NEGATIVE); URINE KETONE POS (NEGATIVE)
[2019-01-23 05:48] LABS: URINE LEUK ESTERASE NEGATIVE (NEGATIVE); URINE NITRITE NEGATIVE (NEGATIVE); URINE PROTEIN NEGATIVE (NEGATIVE); URINE UROBILINOGEN 0.2 mg/dL (0.2-1.0)
[2019-01-23] MEDS ORDERED: INSULIN REGULAR HUMAN 100 UNITS/ML *VIAL SQ ONE (06:40)
[2019-01-23] MEDS ORDERED: INSULIN REGULAR HUMAN 100 UNITS/ML *VIAL IVPUSH ONE (06:42)
--- NOTE | 2019-01-23 10:50 | EKG ---
Test Reason : Blood Pressure : / mmHG Vent. Rate : 082 BPM Atrial Rate : 082 BPM P-R Int : 154 ms QRS Dur : 084 ms QT Int : 378 ms P-R-T Axes : 032 004 033 degrees QTc Int : 441 ms NORMAL SINUS RHYTHM MINIMAL VOLTAGE CRITERIA FOR LVH, MAY BE NORMAL VARIANT BORDERLINE ECG WHEN COMPARED WITH ECG OF 29-AUG-2017 11:01, NO SIGNIFICANT CHANGE WAS FOUND Confirmed by SUZANNE ROCK, EDWIN ([id number]) on 01/23/2019 10:49:54 AM Referred By: Confirmed By:EDWIN PALACIOS MD
== END 2019-01-23 07:15 | disposition home or self-care (01) ==
LOC: JER 04:11
PROC: 3E033VG Introduction of Insulin into Peripheral Vein, Percutaneous Approach (ICD-10-PCS; principal; 2019-01-23)
DX: J45.20 Mild intermittent asthma, uncomplicated (principal); E11.65 Type 2 diabetes mellitus with hyperglycemia; Z79.84 Long term (current) use of oral hypoglycemic drugs; I10 Essential (primary) hypertension; K21.9 Gastro-esophageal reflux disease without esophagitis; R19.7 Diarrhea, unspecified; R35.0 Frequency of micturition; Z91.041 Radiographic dye allergy status; Z91.010 Allergy to peanuts; Z90.710 Acquired absence of both cervix and uterus
CPT/HCPCS: 36415; 71046-TC-FY; 80053; 81003; 82962; 84484; 85025; 87086; 93005; 93010; 99284-25